=== PATIENT | female | born 1955 | race Caucasian/White ===

== ENCOUNTER 2021-02-01 16:20 | Emergency (ER) | payer OTHER ==
[~2021-02-01 16:20] MED LIST: CITRATE OF MAG296 ML PO; MOBIC7.5 MG PO
[2021-02-01 17:08] LABS: HEMOGLOBIN 13.8 gm/dl (12.3-15.3); RED BLOOD COUNT 4.55 M/UL (4.00-5.10); WHITE BLOOD COUNT 8.4 K/UL (4.5-11.0)
[2021-02-01 17:29] LABS: BUN/CREATININE RATIO 19 (0-10)
== END 2021-02-01 21:10 | disposition home or self-care (01) ==
LOC: ER1 16:20
PROVIDERS: Student in an Organized Health Care Education/Training Program
DX: S60.041A Contusion of right ring finger without damage to nail, initial encounter (principal); S60.021A Contusion of right index finger without damage to nail, initial encounter; S60.221A Contusion of right hand, initial encounter; R07.9 Chest pain, unspecified; E11.9 Type 2 diabetes mellitus without complications; W01.10XA Fall on same level from slipping, tripping and stumbling with subsequent striking against unspecified object, initial encounter
CPT/HCPCS: 29130; 71045; 73130; 80053; 82550; 82553; 83874; 84484; 85025; 93005; 99284